=== PATIENT | female | born 1930 | race Caucasian/White ===

== ENCOUNTER 2016-07-05 09:49 | Emergency (ER) | payer MEDICARE ==
[~2016-07-05] VITALS: Ht 162.6 cm; Wt 56.7 kg
[2016-07-05 09:53] VITALS: BP 161/77
== END 2016-07-05 10:47 | disposition home or self-care (01) ==
LOC: ED 10:31
DX: J34.0 Abscess, furuncle and carbuncle of nose (principal); I10 Essential (primary) hypertension; Z90.710 Acquired absence of both cervix and uterus; Z95.0 Presence of cardiac pacemaker
CPT/HCPCS: 99283

== ENCOUNTER 2016-07-07 10:19 | Emergency (ER) | payer MEDICARE ==
[~2016-07-07] VITALS: Ht 162.6 cm; Wt 56.8 kg
[2016-07-07] MEDS ORDERED: LIDOCAINE 1%, 20ML ONE (11:47)
[2016-07-07] MEDS ORDERED: LIDOCAINE 1%, 20ML SQ ONE (12:00)
[2016-07-07 12:04] VITALS: BP 141/82
== END 2016-07-07 13:16 | disposition home or self-care (01) ==
LOC: ED 12:20
DX: L73.9 Follicular disorder, unspecified (principal); I10 Essential (primary) hypertension; Z90.710 Acquired absence of both cervix and uterus
CPT/HCPCS: 99281

== ENCOUNTER 2016-10-27 14:57 | Emergency (ER) | payer MEDICARE ==
[~2016-10-27] VITALS: Ht 162.6 cm; Wt 55.6 kg
[2016-10-27 15:46] LABS: HEMATOCRIT 51.8 % (34.6-47.8); WHITE BLOOD COUNT 9.3 x10^3/uL (3.4-10)
[2016-10-27 15:57] LABS: BLOOD UREA NITROGEN 12 mg/dL (7-18)
[2016-10-27 16:01] LABS: ASPARTATE AMINO TRANSFERASE 23 U/L (15-37)
[2016-10-27 16:43] VITALS: BP 163/77
== END 2016-10-27 18:06 | disposition home or self-care (01) ==
LOC: ED 15:54
DX: I80.02 Phlebitis and thrombophlebitis of superficial vessels of left lower extremity (principal); K64.8 Other hemorrhoids; I10 Essential (primary) hypertension; Z90.710 Acquired absence of both cervix and uterus; Z95.0 Presence of cardiac pacemaker; Z88.0 Allergy status to penicillin; Z88.1 Allergy status to other antibiotic agents
CPT/HCPCS: 36415; 80053; 81003; 85025; 99285

== ENCOUNTER 2018-09-29 17:42 | Inpatient (IN) | payer MEDICARE, MEDICAID ==
[~2018-09-29] VITALS: Ht 162.6 cm; Wt 58.8 kg
--- NOTE | 2018-09-29 18:04 | NUR ---
BREAK RN: DR WILKINS AT BEDSIDE TO MAXIMILIANO PT. 88 YR OLD FEMALE HERE WITH C/O "TAKING XARELTO (STOPPED 08/18/18) THEN BEGAN TAKING 81 MG ASA (HAS BEEN OFF OF X2 WEEKS, GETTING DIZZY, ABD SWELLING AND BLACK STOOL"
[2018-09-29] MEDS ORDERED: AMLO-150 PO (18:19)
[2018-09-29] MEDS ORDERED: METO25TA35 PO (18:19)
--- NOTE | 2018-09-29 18:25 | NUR ---
PT WITH RA SAT DECREASED TO 87%. PLACED ON 2 L NC. REPORT TO JOSEFINA LUND.
[2018-09-29] MEDS ORDERED: SODIUM CHLORIDE FLUSH 10ML SYR IVF ONE (18:30)
[2018-09-29 18:46] LABS: BASOPHILS # (AUTO) 0.04 x10^3/uL (0-0.1); BASOPHILS % (AUTO) 1 % (0-1); EOSINOPHILS # (AUTO) 0.15 x10^3/uL (0-0.4); EOSINOPHILS % (AUTO) 2 % (1-7); LYMPHOCYTES # (AUTO) 1.67 x10^3/uL (1-3.4); LYMPHOCYTES % (AUTO) 21 % (22-44); MD NO; MEAN CORPUSCULAR HEMOGLOBIN 30.2 pg (27.0-34.8); MEAN CORPUSCULAR HGB CONC 33.1 g/dL (32.4-35.8); MEAN CORPUSCULAR VOLUME 91.2 fL (80-100); MONOCYTES % (AUTO) 6 % (2-9); NEUTROPHILS % (AUTO) 70 % (42-75); PLATELET COUNT 325 x10^3/uL (130-400); RED BLOOD COUNT 5.36 x10^6/uL (3.82-5.3); RED CELL DISTRIBUTION WIDTH 13.9 % (9.6-15.2)
--- NOTE | 2018-09-29 18:49 | NUR ---
PT NOTIFIED OF NEED FOR URINE SPECIMEN; UNDERSTANDING VERBALIZED. PT'S DAUGHTER IN ROOM.
[2018-09-29 18:56] LABS: INTERNATIONAL NORMALIZED RATIO 0.98 (0.93-1.1); PROTHROMBIN TIME 10.3 Seconds (9.6-11.5)
[2018-09-29 18:58] LABS: ALANINE AMINOTRANSFERASE 30 U/L (12-78); ALBUMIN 3.7 g/dL (3.4-5.0); ANION GAP 6 mmol/L (5-15); CALCIUM 8.9 mg/dL (8.5-10.1); CHLORIDE 109 mmol/L (98-107)
[2018-09-29 19:03] LABS: ALKALINE PHOSPHATASE 100 U/L (45-117); BILIRUBIN,TOTAL 0.5 mg/dL (0.2-1.0); CREATININE 0.84 mg/dL (0.55-1.02); TOTAL PROTEIN 7.1 g/dL (6.4-8.2); TROPONIN I < 0.015 ng/mL (0.000-0.045)
--- NOTE | 2018-09-29 19:07 | NUR ---
PULSE OX 86% RA. O2 REAPPLIED 2LNC; PULSE OX INCREASED TO 92%.
--- NOTE | 2018-09-29 19:08 | NUR ---
DAUGHTER: FRANCISCO SHAFFER CELL: [phone]
--- NOTE | 2018-09-29 19:09 | NUR ---
PIECE JOBBER BS. PT DEBATING CONTRAST. PIECE JOBBER WILL CONSULT DR WILKINS. INFORMED PT THAT CONTRAST ENHANCES CT RESULT; PT AGREED TO CONTRAST. WILL NOTIFY TECH & DR WILKINS
--- NOTE | 2018-09-29 19:57 | NUR ---
AMBULATORY TO & FROM [facility] W/OUT INCIDENT, GAIT STEADY. VOIDED URINE SPECIMEN PROVIDED. PT RETURNED TO BED; BEAR HEATER PROVIDED. SIDE RAILS UP X2, CALL LIGHT W/IN REACH. MONITORING EQUIPMENT REAPPLIED. Addendum: 09/29/18 at 2000 by ZEUS O2 REAPPLIED 2LNC.
[2018-09-29 20:30] LABS: MICROSCOPIC NOT IND
[2018-09-29 20:35] LABS: CULTURE INDICATED? NO
--- NOTE | 2018-09-29 21:52 | NUR ---
PT REPORT TO KEVON MOSS FOR ROOM [id number]
[2018-09-29 22:30] VITALS: BP 151/69
[2018-09-29 22:42] VITALS: BP 151/69
[2018-09-29] MEDS ORDERED: ONDANSETRON 2MG/ML, 2ML IVPush PRN (23:00)
[2018-09-29] MEDS ORDERED: ACETAMINOPHEN 325 MG TABLET PO PRN (23:00)
[2018-09-29] MEDS ORDERED: ENALAPRILAT 1.25 MG/ML, 2ML IVPush PRN (23:00)
[2018-09-30 02:26] VITALS: BP 126/74
[2018-09-30 06:04] LABS: BASOPHILS % (AUTO) 2 % (0-1); EOSINOPHILS # (AUTO) 0.19 x10^3/uL (0-0.4); EOSINOPHILS % (AUTO) 3 % (1-7); LYMPHOCYTES # (AUTO) 1.86 x10^3/uL (1-3.4); LYMPHOCYTES % (AUTO) 27 % (22-44); MD NO; MEAN CORPUSCULAR HEMOGLOBIN 29.6 pg (27.0-34.8); MEAN CORPUSCULAR HGB CONC 32.8 g/dL (32.4-35.8); MEAN CORPUSCULAR VOLUME 90.1 fL (80-100); MEAN PLATELET VOLUME 7.9 fL (7.4-10.4); MONOCYTES # (AUTO) 0.57 x10^3/uL (0.2-0.8); MONOCYTES % (AUTO) 8 % (2-9); NEUTROPHILS # (AUTO) 4.24 x10^3/uL (1.8-6.8); NEUTROPHILS % (AUTO) 61 % (42-75); PLATELET COUNT 301 x10^3/uL (130-400); RED BLOOD COUNT 5.31 x10^6/uL (3.82-5.3); RED CELL DISTRIBUTION WIDTH 13.8 % (9.6-15.2)
[2018-09-30 06:11] LABS: OCCULT BLOOD NEGATIVE (NEGATIVE)
[2018-09-30 06:17] LABS: ALBUMIN 3.5 g/dL (3.4-5.0); ANION GAP 5 mmol/L (5-15); CALCIUM 8.7 mg/dL (8.5-10.1); CHLORIDE 109 mmol/L (98-107)
[2018-09-30 06:21] LABS: ALANINE AMINOTRANSFERASE 27 U/L (12-78); ALKALINE PHOSPHATASE 100 U/L (45-117); BILIRUBIN,TOTAL 0.8 mg/dL (0.2-1.0); CHOLESTEROL, TOTAL 207 mg/dL (140-239); CREATININE 0.69 mg/dL (0.55-1.02); HDL CHOL % 20 % (28-40); HDL CHOLESTEROL (DIRECT) 41 mg/dL (40-60); LDL CHOLESTEROL,CALCULATED 123 mg/dL (54-169); TOTAL PROTEIN 6.9 g/dL (6.4-8.2); TRIGLYCERIDES 216 mg/dL (50-200); VLDL CHOLESTEROL 43 mg/dL (0-25)
[2018-09-30] MEDS: OMEPRAZOLE 20 MG CAPSULE.DR PO SCH (07:30)
[2018-09-30 07:34] VITALS: BP 147/75
[2018-09-30] MEDS: METOPROLOL TARTRATE 25 MG TABLET PO SCH (07:53)
[2018-09-30] MEDS: AMLODIPINE 2.5 MG TABLET PO SCH (07:53)
[2018-09-30] MEDS: SENNA/DOCUSATE TABLET PO SCH (07:54)
[2018-09-30 13:24] VITALS: BP 116/67
[2018-09-30 19:26] VITALS: BP 151/71
[2018-10-01 01:23] VITALS: BP 116/67
[2018-10-01 05:12] LABS: BASOPHILS # (AUTO) 0.05 x10^3/uL (0-0.1); BASOPHILS % (AUTO) 1 % (0-1); EOSINOPHILS # (AUTO) 0.17 x10^3/uL (0-0.4); EOSINOPHILS % (AUTO) 3 % (1-7); LYMPHOCYTES # (AUTO) 1.65 x10^3/uL (1-3.4); LYMPHOCYTES % (AUTO) 31 % (22-44); MD NO; MEAN CORPUSCULAR HEMOGLOBIN 29.5 pg (27.0-34.8); MEAN CORPUSCULAR HGB CONC 32.5 g/dL (32.4-35.8); MEAN CORPUSCULAR VOLUME 90.8 fL (80-100); MEAN PLATELET VOLUME 7.8 fL (7.4-10.4); MONOCYTES # (AUTO) 0.44 x10^3/uL (0.2-0.8); MONOCYTES % (AUTO) 8 % (2-9); NEUTROPHILS # (AUTO) 3.03 x10^3/uL (1.8-6.8); NEUTROPHILS % (AUTO) 57 % (42-75); PLATELET COUNT 269 x10^3/uL (130-400); RED BLOOD COUNT 5.07 x10^6/uL (3.82-5.3); RED CELL DISTRIBUTION WIDTH 13.6 % (9.6-15.2)
[2018-10-01 05:23] LABS: ALBUMIN 3.1 g/dL (3.4-5.0); ANION GAP 6 mmol/L (5-15); CALCIUM 8.5 mg/dL (8.5-10.1); CHLORIDE 108 mmol/L (98-107)
[2018-10-01 05:27] LABS: ALANINE AMINOTRANSFERASE 21 U/L (12-78); ALKALINE PHOSPHATASE 85 U/L (45-117); BILIRUBIN,TOTAL 0.9 mg/dL (0.2-1.0); CREATININE 0.66 mg/dL (0.55-1.02); TOTAL PROTEIN 6.2 g/dL (6.4-8.2)
[2018-10-01 06:56] VITALS: BP 130/75
[2018-10-01] MEDS: SENNA/DOCUSATE TABLET PO SCH (09:00)
[2018-10-01] MEDS: AMLODIPINE 2.5 MG TABLET PO SCH (09:00)
[2018-10-01] MEDS: METOPROLOL TARTRATE 25 MG TABLET PO SCH (09:30)
[2018-10-01] MEDS: OMEPRAZOLE 20 MG CAPSULE.DR PO SCH (09:30)
== END 2018-10-01 12:20 | disposition home or self-care (01) | DRG 189 ==
LOC: ED 18:25 → EDIP 21:05 → 3NE 22:29 → DCLOUNGE 10-01 12:07
PROVIDERS: ADMIT Family Medicine; ATTEND Family Medicine
PROC: 0T9B70Z Drainage of Bladder with Drainage Device, Via Natural or Artificial Opening (ICD-10-PCS; principal; 2018-09-29)
DX: J96.01 Acute respiratory failure with hypoxia (principal); I10 Essential (primary) hypertension; I48.91 Unspecified atrial fibrillation; I73.9 Peripheral vascular disease, unspecified; K57.30 Diverticulosis of large intestine without perforation or abscess without bleeding; K80.20 Calculus of gallbladder without cholecystitis without obstruction; K76.0 Fatty (change of) liver, not elsewhere classified; Z86.19 Personal history of other infectious and parasitic diseases; Z86.72 Personal history of thrombophlebitis; Z90.710 Acquired absence of both cervix and uterus; Z91.19 Patient's noncompliance with other medical treatment and regimen; I25.2 Old myocardial infarction; Z72.0 Tobacco use; Z95.0 Presence of cardiac pacemaker
CPT/HCPCS: 36415; 71045; 74177; 80053; 80061; 81003; 82272; 83690; 83735; 83880; 84100; 84443; 84484; 85025; 85610; 85730; 93005; 93306; 99285; G0378

== ENCOUNTER 2020-02-29 11:01 | Emergency (ER) | payer MEDICARE, OTHER ==
[~2020-02-29] VITALS: Ht 162.6 cm; Wt 51.7 kg
[~2020-02-29 11:01] MED LIST: AMLO-150 PO; METO25TA35 PO
--- NOTE | 2020-02-29 11:42 | NUR ---
PT IS A 89F COMPLAINING OF "FEELING LIKE THERE IS SOMETHING IN HER HEAD SCRATCHING AROUND" IT'S NOT CONSTANT AND SOMETIMES MOVES AROUND BUT TODAY FEELS MORE CONSTANT. 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 CONTINUOUS SPO2 AND CYCLING VITALS. WARM BLANKETS PROVIDED. CALL LIGHT WITHIN REACH.
--- NOTE | 2020-02-29 12:49 | NUR ---
PT TO CT
--- NOTE | 2020-02-29 13:03 | NUR ---
PATIENT BACK FROM CT
[2020-02-29 14:07] VITALS: BP 136/68
--- NOTE | 2020-02-29 15:40 | NUR ---
Patient/Caregiver given discharge instructions and they have confirmed that they understand the instructions. Patient ambulatory with steady gait.
== END 2020-02-29 15:41 | disposition home or self-care (01) ==
LOC: ED 14:38
DX: L29.9 Pruritus, unspecified (principal); R51.9 Headache, unspecified; I48.91 Unspecified atrial fibrillation; I10 Essential (primary) hypertension; Z95.0 Presence of cardiac pacemaker; Z90.710 Acquired absence of both cervix and uterus
CPT/HCPCS: 70450; 93005; 99285